=== PATIENT | female | born 1960 | race Two or more races ===

== ENCOUNTER 2019-05-05 04:50 | Emergency (ER) | payer OTHER ==
[~2019-05-05] VITALS: Ht 157.5 cm; Wt 99.3 kg
[~2019-05-05 04:50] MED LIST: AMLODIPINE BESY10 MG; ASA81 MG; GLIMEPIRIDE4 MG; METFORMIN HCL500 M1; NABUMETONE750 MG PO; ORPH100T PO; OSEL75CA PO; PROVENTIL3 ML/2.5 M IH; SYNTHROID50 MCG; VASOTEC20 M1; ZANTAC150 MG PO; ZOCOR20 MG; ZYNCOF 20-400120 ML PO; [UNRECOGNIZED DRUG - OTHER]
[2019-05-05] MEDS ORDERED: PRINIVIL20 MG (05:10)
[2019-05-05] MEDS ORDERED: METFORMIN HCL1000 MG (05:10)
[2019-05-05] MEDS ORDERED: ASPIR 8181 MG (05:11)
[2019-05-05] MEDS ORDERED: GLUCOTROL10 MG (05:11)
[2019-05-05] MEDS ORDERED: NORVASC10 MG (05:11)
[2019-05-05] MEDS ORDERED: LANTUS SOL100 UNIT/1 (05:12)
[2019-05-05] MEDS ORDERED: TRADJENTA5 MG (05:12)
[2019-05-05] MEDS ORDERED: GABAPENTIN400 MG PO (07:03)
== END 2019-05-05 07:30 | disposition home or self-care (01) ==
LOC: ER 04:50
DX: M79.662 Pain in left lower leg (principal)

== ENCOUNTER 2021-05-19 19:10 | Inpatient (IN) | payer OTHER ==
[~2021-05-19] VITALS: Ht 162.6 cm; Wt 102.1 kg
[~2021-05-19 19:10] MED LIST changes: +ASPIR 8181 MG; +GABAPENTIN400 MG PO; +GLUCOTROL10 MG; +LANTUS SOL100 UNIT/1; +METFORMIN HCL1000 MG; +NORVASC10 MG; +PRINIVIL20 MG; +TRADJENTA5 MG
[2021-05-19] MEDS ORDERED: ATORVASTATIN CA20 MG PO (19:27)
[2021-05-19] MEDS ORDERED: VITAMIN D3125 MC2 PO (19:27)
[2021-05-19] MEDS ORDERED: CALTRATE 600+D1 EACH PO (19:28)
[2021-05-19] MEDS ORDERED: FEOSOL325 MG PO (19:28)
[2021-05-26] MEDS ORDERED: INTEGRA PLUS C1 EACH PO (19:35)
[2021-05-26] MEDS ORDERED: KALEXATE15 GM PO (19:35)
[2021-05-26] MEDS ORDERED: FAMOTIDINE20 MG PO (19:35)
[2021-05-26] MEDS ORDERED: Lantus 1000 UNITS/10 SUBCUTANEO (19:35)
[2021-05-26] MEDS ORDERED: LASIX20 MG PO (19:35)
[2021-05-26] MEDS ORDERED: AMLODIPINE BESY10 MG PO (19:35)
[2021-05-26] MEDS ORDERED: LIPITOR20 MG PO (19:35)
== END 2021-05-26 21:00 | disposition home or self-care (01) | DRG 683 ==
LOC: ER 19:10 → MEDI 23:26
PROVIDERS: ADMIT Internal Medicine; ATTEND Internal Medicine
PROC: B24BZZZ Ultrasonography of Heart with Aorta (ICD-10-PCS; principal; 2021-05-20)
DX: I12.9 Hypertensive chronic kidney disease with stage 1 through stage 4 chronic kidney disease, or unspecified chronic kidney disease (principal); N17.8 Other acute kidney failure; N18.30 Chronic kidney disease, stage 3 unspecified; D63.8 Anemia in other chronic diseases classified elsewhere; E86.1 Hypovolemia; E87.79 Other fluid overload; E11.22 Type 2 diabetes mellitus with diabetic chronic kidney disease; E11.40 Type 2 diabetes mellitus with diabetic neuropathy, unspecified; E11.65 Type 2 diabetes mellitus with hyperglycemia; Z79.4 Long term (current) use of insulin; E66.8 Other obesity; E03.8 Other specified hypothyroidism; Z20.822 Contact with and (suspected) exposure to COVID-19

== ENCOUNTER 2021-07-07 10:16 | Emergency (ER) | payer OTHER ==
[~2021-07-07] VITALS: Ht 162.6 cm; Wt 103.0 kg
[~2021-07-07 10:16] MED LIST changes: +AMLODIPINE BESY10 MG PO; +ATORVASTATIN CA20 MG PO; +CALTRATE 600+D1 EACH PO; +FAMOTIDINE20 MG PO; +FEOSOL325 MG PO; +INTEGRA PLUS C1 EACH PO; +KALEXATE15 GM PO; +LASIX20 MG PO; +LIPITOR20 MG PO; +Lantus 1000 UNITS/10 SUBCUTANEO; +VITAMIN D3125 MC2 PO
== END 2021-07-07 13:07 | disposition home or self-care (01) ==
LOC: ER 10:16
DX: S90.31XA Contusion of right foot, initial encounter (principal); W19.XXXA Unspecified fall, initial encounter; Y92.9 Unspecified place or not applicable; Z91.018 Allergy to other foods; E11.9 Type 2 diabetes mellitus without complications; Z79.4 Long term (current) use of insulin; I10 Essential (primary) hypertension

== ENCOUNTER 2022-04-17 07:50 | Emergency (ER) | payer OTHER ==
[~2022-04-17] VITALS: Ht 157.5 cm; Wt 92.5 kg
== END 2022-04-17 12:36 | disposition home or self-care (01) ==
LOC: ER 07:50
DX: N18.9 Chronic kidney disease, unspecified (principal); R06.02 Shortness of breath; Z20.822 Contact with and (suspected) exposure to COVID-19; Z91.018 Allergy to other foods; I10 Essential (primary) hypertension; E03.9 Hypothyroidism, unspecified

== ENCOUNTER 2022-09-26 07:58 | Emergency (ER) | payer OTHER ==
[~2022-09-26] VITALS: Ht 157.5 cm; Wt 68.0 kg
== END 2022-09-26 11:36 | disposition home or self-care (01) ==
LOC: ER 07:58
DX: R05.9 Cough, unspecified (principal); I10 Essential (primary) hypertension; E11.9 Type 2 diabetes mellitus without complications; Z91.013 Allergy to seafood; Z91.018 Allergy to other foods

== ENCOUNTER 2023-02-02 13:05 | Emergency (ER) | payer OTHER ==
[~2023-02-02] VITALS: Ht 160 cm; Wt 88.5 kg
[~2023-02-02 13:05] MED LIST changes: +FERROUS SULFAT325 M1 PO; +FUROSEMIDE40 MG PO; +HYDRALAZINE HCL25 MG PO; +ISOSORBIDE MONO30 MG PO; +LEVOTHYROXINE50 MCG PO; +PAIN RELIEVER500 M2 PO; +RETACRIT10000 UNIT SUBCUTANEO
[2023-02-02 15:35] LABS: HEMATOCRIT 33.3 % (36.0-45.00); HEMOGLOBIN 11.2 g/dL (12.0-15.00); MEAN CELL VOLUME 93.9 fL (80.00-100.00); MEAN CORPUSCULAR HEMOGLOBIN 31.7 pg (27.00-32.0); MEAN CORPUSCULAR HGB CONC 33.7 g/dl (32.0-36.0); PLATELET COUNT 170 K/uL (150-450); RED BLOOD COUNT 3.55 M/uL (4.00-6.00); RED CELL DISTRIBUTION WIDTH 15.2 % (11.5-14.5)
[2023-02-02] MEDS ORDERED: TUSNEL DIABETI118 ML PO (15:49)
== END 2023-02-02 16:02 | disposition home or self-care (01) ==
LOC: ER 13:05
PROVIDERS: General Practice
DX: R05.9 Cough, unspecified (principal); Z20.822 Contact with and (suspected) exposure to COVID-19; I10 Essential (primary) hypertension; E11.9 Type 2 diabetes mellitus without complications; Z79.4 Long term (current) use of insulin; Z91.013 Allergy to seafood; Z91.018 Allergy to other foods

== ENCOUNTER 2023-03-02 21:59 | Emergency (ER) | payer OTHER ==
[~2023-03-02] VITALS: Ht 157.5 cm; Wt 81.6 kg
[~2023-03-02 21:59] MED LIST changes: +TUSNEL DIABETI118 ML PO
== END 2023-03-03 02:13 | disposition home or self-care (01) ==
LOC: ER 21:59
DX: M54.51 Vertebrogenic low back pain (principal); E11.9 Type 2 diabetes mellitus without complications; Z79.4 Long term (current) use of insulin; I10 Essential (primary) hypertension; Z91.018 Allergy to other foods; N28.9 Disorder of kidney and ureter, unspecified; Z99.2 Dependence on renal dialysis
CPT/HCPCS: 96372; 99283; J1885

== ENCOUNTER 2023-08-10 08:24 | Emergency (ER) | payer OTHER ==
[~2023-08-10] VITALS: Ht 157.5 cm; Wt 83.9 kg
[2023-08-10] MEDS ORDERED: FUROSEMIDE40 MG/4 ML PO (08:51)
[2023-08-10] MEDS ORDERED: LEVOXYL25 MCG PO (08:52)
[2023-08-10] MEDS ORDERED: GABAPENTIN100 M2 PO (08:52)
[2023-08-10] MEDS ORDERED: FAMOTIDINE/PF 20 MG in 0.9 % SODIUM CHLORIDE 8 ML IV PUSH STA (09:20)
[2023-08-10] MEDS ORDERED: BUTALB/ACETAMINOPHEN/CAFFEINE 1 TAB TABLET PO ONE (09:30)
[2023-08-10 09:55] LABS: HEMATOCRIT 34.9 % (36.0-45.00); HEMOGLOBIN 11.8 g/dL (12.0-15.00); MEAN CELL VOLUME 97.5 fL (80.00-100.00); MEAN CORPUSCULAR HEMOGLOBIN 33.1 pg (27.00-32.0); MEAN CORPUSCULAR HGB CONC 33.9 g/dl (32.0-36.0); PLATELET COUNT 196 K/uL (150-450); RED BLOOD COUNT 3.58 M/uL (4.00-6.00); RED CELL DISTRIBUTION WIDTH 13.3 % (11.5-14.5)
[2023-08-10 12:44] LABS: ALBUMIN 3.7 gm/dL (3.4-5.0); BILIRUBIN TOTAL 0.37 mg/dL (0.3-1.2); CALCIUM 9.2 mg/dL (8.5-10.1); GLOBULINA 4.3 G/DL (2.4-3.5); POTASSIUM 4.79 mEq/L (3.5-5.1)
[2023-08-10 12:49] LABS: GFR 7.79
[2023-08-10 12:50] LABS: CREATININE SERUM 5.54 mg/dL (0.55-1.02)
== END 2023-08-10 14:22 | disposition home or self-care (01) ==
LOC: ER 08:24
PROVIDERS: General Practice
DX: R53.81 Other malaise (principal); R10.13 Epigastric pain; Z20.822 Contact with and (suspected) exposure to COVID-19; I10 Essential (primary) hypertension; E11.9 Type 2 diabetes mellitus without complications; Z79.4 Long term (current) use of insulin; Z91.018 Allergy to other foods
CPT/HCPCS: 36415; 96365; 99282; J3490

== ENCOUNTER 2023-11-26 23:26 | Emergency (ER) | payer OTHER ==
[~2023-11-26] VITALS: Ht 157.5 cm; Wt 83.0 kg
[~2023-11-26 23:26] MED LIST changes: +FUROSEMIDE40 MG/4 ML PO; +GABAPENTIN100 M2 PO; +LEVOXYL25 MCG PO
[2023-11-26] MEDS ORDERED: RENVELA0.8 GM PO (23:34)
[2023-11-26] MEDS ORDERED: RENVELA2.4 GM PO (23:35)
[2023-11-26] MEDS ORDERED: LEVOTHYROXINE50 MC1 PO (23:36)
[2023-11-26] MEDS ORDERED: ISOSORBIDE DINI30 MG PO (23:36)
[2023-11-26] MEDS ORDERED: TRADJENTA5 MG PO (23:36)
[2023-11-26] MEDS ORDERED: LIPITOR20 MG PO (23:36)
[2023-11-26] MEDS ORDERED: LASIX40 MG PO (23:36)
[2023-11-26] MEDS ORDERED: COZAAR50 MG PO (23:37)
[2023-11-26] MEDS ORDERED: HYDROCHLOROTHIA50 MG PO (23:37)
[2023-11-27] MEDS ORDERED: HYDROCODONE/CHLORPHEN P-STIREX 5 ML ML PO STA (03:44)
[2023-11-27 04:04] LABS: HEMATOCRIT 35.3 % (36.0-45.00); HEMOGLOBIN 11.9 g/dL (12.0-15.00); MEAN CELL VOLUME 98.9 fL (80.00-100.00); MEAN CORPUSCULAR HEMOGLOBIN 33.2 pg (27.00-32.0); MEAN CORPUSCULAR HGB CONC 33.6 g/dl (32.0-36.0); PLATELET COUNT 202 K/uL (150-450); RED BLOOD COUNT 3.57 M/uL (4.00-6.00); RED CELL DISTRIBUTION WIDTH 13.7 % (11.5-14.5)
[2023-11-27] MEDS ORDERED: CEFTRIAXONE SODIUM 1,000 MG VIAL IM STA (05:03)
[2023-11-27] MEDS ORDERED: CEFTRIAXONE SODIUM 1,000 MG VIAL ONE (05:10)
== END 2023-11-27 05:21 | disposition home or self-care (01) ==
LOC: ER 23:27
DX: R53.81 Other malaise (principal); J03.90 Acute tonsillitis, unspecified; Z20.822 Contact with and (suspected) exposure to COVID-19; I10 Essential (primary) hypertension; Z91.013 Allergy to seafood
CPT/HCPCS: 36415; 96372; 99282; J0696

== ENCOUNTER 2024-07-13 21:01 | Emergency (ER) | payer OTHER ==
[~2024-07-13] VITALS: Ht 165.1 cm; Wt 78.9 kg
[~2024-07-13 21:01] MED LIST changes: +COZAAR50 MG PO; +HYDROCHLOROTHIA50 MG PO; +ISOSORBIDE DINI30 MG PO; +LASIX40 MG PO; +LEVOTHYROXINE50 MC1 PO; +RENVELA0.8 GM PO; +RENVELA2.4 GM PO; +TRADJENTA5 MG PO
[2024-07-13] MEDS ORDERED: GUAIFENESIN 200 MG/10 ML BLIST.PACK PO STA (21:43)
== END 2024-07-13 22:43 | disposition home or self-care (01) ==
LOC: ER 21:03
DX: B34.9 Viral infection, unspecified (principal); R05.9 Cough, unspecified; Z20.822 Contact with and (suspected) exposure to COVID-19; Z91.013 Allergy to seafood

== ENCOUNTER 2024-12-10 12:32 | Emergency (ER) | payer OTHER ==
[~2024-12-10] VITALS: Ht 162.6 cm; Wt 113.4 kg
[2024-12-10 13:58] LABS: BASO % 0.3 % (0.1-1.2); EOS # 0.12 (0.04-0.54); EOS % 2.0 % (0.7-7.0); LYMPH # 1.15 (1.18-3.74); LYMPH % 18.8 % (19.3-53.1); MEAN PLATELET VOLUME 10.50 fl (9.4-12.4); MONO # 0.54 (0.24-0.82); MONO % 8.8 % (4.7-12.5); NEUT # 4.29 (1.56-6.13); NEUT % 69.9 % (34.0-71.1); RED CELL DISTRIBUTION WIDTH 12.3 % (11.6-14.4)
[2024-12-10 14:25] LABS: ALT/SGPT 15.0 U/L (12-78); AST/SGOT 11.0 U/L (15-37); BILIRUBIN TOTAL 0.27 mg/dL (0.3-1.2); BUN CREA RATIO 12.0 (7.0-25.0); CREATININE SERUM 2.9 mg/dL (0.55-1.02); GFR 16.34; GLOBULINA 3.4 G/DL (2.4-3.5); GLUCOSE FASTING 130.0 mg/dL (65-100); LDH 223.0 U/L (84-246); OSMOLALITY SERUM 285.0 MOSM/KG (275-295); PHOSPHOKINASE CREATININE 67.0 U/L (26-192)
[2024-12-10] MEDS ORDERED: MAG HYDROX/ALUMINUM HYD/SIMETH 30 ML BLIST.PACK PO ONE ×2 (14:27→14:30)
[2024-12-10] MEDS ORDERED: FAMOTIDINE/PF 20 MG/2 ML VIAL ONE (14:27)
[2024-12-10] MEDS ORDERED: FAMOTIDINE/PF 20 MG/2 ML VIAL IV PUSH ONE (14:30)
== END 2024-12-10 17:58 | disposition home or self-care (01) ==
LOC: ER 12:32
PROVIDERS: Emergency Medicine
DX: N18.9 Chronic kidney disease, unspecified (principal); R10.13 Epigastric pain; R07.89 Other chest pain; R53.1 Weakness; I10 Essential (primary) hypertension; E11.9 Type 2 diabetes mellitus without complications; Z91.013 Allergy to seafood
CPT/HCPCS: 36415; 93005; 96365; 99282; J3490

== ENCOUNTER 2024-12-22 21:47 | Inpatient (IN) | payer OTHER ==
[~2024-12-22] VITALS: Ht 157.5 cm; Wt 59.0 kg
[2024-12-22] MEDS ORDERED: CLEOCIN HCL150 MG PO (22:05)
[2024-12-22] MEDS ORDERED: PIPERACILLIN/TAZOBACTAM SODIUM 2.25 GM VIAL IV SCH (22:31)
[2024-12-23 00:14] LABS: ERYTHROCYTE SEDIMENTATION RATE > 130 mm/hr (0-30)
[2024-12-23 00:15] LABS: BASO % 0.2 % (0.1-1.2); EOS # 0.13 (0.04-0.54); EOS % 1.4 % (0.7-7.0); LYMPH # 1.29 (1.18-3.74); LYMPH % 13.8 % (19.3-53.1); MEAN PLATELET VOLUME 10.70 fl (9.4-12.4); MONO # 0.63 (0.24-0.82); MONO % 6.7 % (4.7-12.5); NEUT # 7.27 (1.56-6.13); NEUT % 77.5 % (34.0-71.1); RED CELL DISTRIBUTION WIDTH 12.8 % (11.6-14.4)
[2024-12-23 00:54] LABS: BUN CREA RATIO 10.0 (7.0-25.0); GFR 9.76; GLOBULINA 4.6 G/DL (2.4-3.5); GLUCOSE FASTING 149.0 mg/dL (65-100); OSMOLALITY SERUM 280.0 MOSM/KG (275-295)
[2024-12-23 00:55] LABS: ALT/SGPT 15.0 U/L (12-78); AST/SGOT 17.0 U/L (15-37); BILIRUBIN TOTAL 0.41 mg/dL (0.3-1.2)
[2024-12-23 00:56] LABS: CREATININE SERUM 4.53 mg/dL (0.55-1.02)
[2024-12-23] MEDS ORDERED: SODIUM CHLORIDE 0.45 % 1,000 ML IV SCH (11:45)
[2024-12-23] MEDS ORDERED: LACTOBACILLUS ACIDOPHILUS 1 CAP CAP PO SCH (11:55)
[2024-12-23] MEDS ORDERED: ISOSORBIDE MONONITRATE 30 MG TABLET PO SCH (11:56)
[2024-12-23] MEDS ORDERED: LOSARTAN POTASSIUM 50 MG TABLET PO SCH (11:57)
[2024-12-23] MEDS ORDERED: ACETAMINOPHEN 500 MG GEL..CAP PO PRN (12:00)
[2024-12-23] MEDS ORDERED: DEXTROSE 50 % IN WATER 0.5 G/ML VIAL IV PRN (12:00)
[2024-12-23] MEDS ORDERED: INSULIN LISPRO 1,000 UNIT/10 ML UNITS SUBCUTANEO PRN (12:00)
[2024-12-23] MEDS ORDERED: PATIENTS OWN MEDICATION (MEDICAMENTO EN PISO) PO SCH (13:00)
[2024-12-23] MEDS ORDERED: PIPERACILLIN/TAZOBACTAM SODIUM 2.25 GM VIAL IV SCH ×2 (13:00→17:00)
[2024-12-23 13:48] VITALS: BP 170/76; O2SAT 97
[2024-12-23 15:03] LABS: COVID-19 AG NEGATIVE (NEGATIVE)
[2024-12-23] MEDS ORDERED: ATORVASTATIN CALCIUM 20 MG TABLET PO SCH (17:00)
[2024-12-23] MEDS ORDERED: HYDROCHLOROTHIAZIDE 25 MG TABLET PO SCH (17:00)
[2024-12-23 17:21] VITALS: BP 163/68; O2SAT 94
[2024-12-23] MEDS ORDERED: GABAPENTIN 100 MG CAPSULE PO SCH (21:00)
[2024-12-24 01:40] VITALS: BP 139/83; O2SAT 97
[2024-12-24] MEDS ORDERED: LEVOTHYROXINE SODIUM 50 MCG TABLET PO SCH (06:00)
[2024-12-24 07:08] LABS: INR 1.41
[2024-12-24 07:23] LABS: BASO % 0.2 % (0.1-1.2); EOS # 0.13 (0.04-0.54); EOS % 1.4 % (0.7-7.0); LYMPH # 1.01 (1.18-3.74); LYMPH % 11.1 % (19.3-53.1); MEAN PLATELET VOLUME 10.80 fl (9.4-12.4); MONO # 0.72 (0.24-0.82); MONO % 7.9 % (4.7-12.5); NEUT # 7.18 (1.56-6.13); NEUT % 78.9 % (34.0-71.1); RED CELL DISTRIBUTION WIDTH 12.5 % (11.6-14.4)
[2024-12-24 07:43] LABS: ERYTHROCYTE SEDIMENTATION RATE 89 mm/hr (0-30)
[2024-12-24 08:00] VITALS: BP 150/65; O2SAT 100
[2024-12-24 08:08] LABS: ALT/SGPT 17.0 U/L (12-78); AST/SGOT 19.0 U/L (15-37); BILIRUBIN TOTAL 0.37 mg/dL (0.3-1.2); CHOL HDL RATIO 1.6 (0-5.0); GLOBULINA 3.7 G/DL (2.4-3.5); GLUCOSE FASTING 101.0 mg/dL (65-100); HDL 78.0 mg/dl (40-60); LDL 38.0 mg/dl (0-130); OSMOLALITY SERUM 288.0 MOSM/KG (275-295); T4 FREE 1.27 NG/ML (0.76-1.46); TSH 1.94 uIU/mL (0.358-3.74); VLDL 9.0 (0-39)
[2024-12-24 08:28] LABS: BUN CREA RATIO 9.0 (7.0-25.0); GFR 7.13
[2024-12-24 08:29] LABS: CREATININE SERUM 5.95 mg/dL (0.55-1.02)
[2024-12-24] MEDS ORDERED: PIPERACILLIN/TAZOBACTAM SODIUM 2.25 GM VIAL IV SCH ×3 (13:15→21:00)
[2024-12-24 15:57] LABS: URINE APPEARANCE Clear; URINE BILIRRUBIN Negative (NEGATIVE); URINE BLOOD Negative; URINE COLOR Yellow; URINE GLUCOSE Negative (NEGATIVE); URINE KETONE Negative (NEGATIVE); URINE LEUKOCYTE Negative; URINE NITRATE Negative; URINE UROBILINOGEN 0.2 E.U./dl
[2024-12-24 16:00] VITALS: BP 134/67; O2SAT 97
[2024-12-24 16:01] LABS: URINE BACTERIA 22.8 uL (0.0-1933); URINE EPITHELIAL CELLS 12.6 uL (0.0-38.8); URINE RBC 3.3 uL (0.0-20.8); URINE WBC 2.4 uL (0.0-23.2)
[2024-12-24 16:17] LABS: URINE CAST 0.87 uL (0.0-1.40); URINE PROTEIN 100 (NEGATIVE)
[2024-12-24] MEDS ORDERED: CHLORHEXIDINE GLUCONATE 120 ML BOTTLE TOP SCH (17:00)
[2024-12-25 01:36] VITALS: BP 141/77; O2SAT 98
[2024-12-25 08:00] VITALS: BP 158/70; O2SAT 96
[2024-12-25 16:00] VITALS: BP 150/65; O2SAT 96
[2024-12-26 01:04] VITALS: BP 151/69; O2SAT 97
[2024-12-26 08:12] VITALS: BP 172/81; O2SAT 98
[2024-12-26] MEDS ORDERED: PATIENTS OWN MEDICATION (MEDICAMENTO EN PISO) PO SCH (09:00)
[2024-12-26 16:30] VITALS: BP 131/62; O2SAT 98
[2024-12-27 00:43] VITALS: BP 133/62; O2SAT 96
[2024-12-27 08:47] VITALS: BP 120/61; O2SAT 97
[2024-12-27] MEDS ORDERED: PHYTONADIONE 10 MG/ML AMPUL IM NR (15:15)
[2024-12-27] MEDS ORDERED: MUPIROCIN 15 GM OINT..GM TUBE NASAL SCH (17:00)
[2024-12-27 17:05] VITALS: BP 161/67; O2SAT 98
[2024-12-28 01:17] VITALS: BP 148/61; O2SAT 97
[2024-12-28 07:31] LABS: INR 1.21
[2024-12-28 08:00] VITALS: BP 160/76; O2SAT 98
[2024-12-28] MEDS ORDERED: levoFLOXacin IN DEXTROSE 5 % 5 MG/ML PIGGYBAG IV NR ×2 (09:00→14:00)
[2024-12-28] MEDS ORDERED: VANCOMYCIN HCL 1,000 MG VIAL IV NR ×2 (09:00→18:00)
[2024-12-28] MEDS ORDERED: VANCOMYCIN HCL 1,000 MG VIAL ONE ×2 (10:01→21:17)
[2024-12-28] MEDS ORDERED: POVIDONE-IODINE 118 ML BOTT TOP ONE ×2 (13:02→13:12)
[2024-12-28 18:38] VITALS: BP 156/76; O2SAT 97
[2024-12-29 02:23] VITALS: BP 155/79; O2SAT 100
[2024-12-29 08:00] VITALS: BP 137/73; O2SAT 98
[2024-12-29] MEDS ORDERED: KETOROLAC TROMETHAMINE 30 MG VIAL IV SCH (13:00)
[2024-12-29 16:00] VITALS: BP 158/68; O2SAT 96
[2024-12-30 02:07] VITALS: BP 156/70; O2SAT 97
[2024-12-30 06:28] LABS: BASO % 0.3 % (0.1-1.2); EOS # 0.17 (0.04-0.54); EOS % 1.8 % (0.7-7.0); LYMPH # 1.81 (1.18-3.74); LYMPH % 18.9 % (19.3-53.1); MEAN PLATELET VOLUME 10.40 fl (9.4-12.4); MONO # 0.93 (0.24-0.82); MONO % 9.7 % (4.7-12.5); NEUT # 6.57 (1.56-6.13); NEUT % 68.8 % (34.0-71.1); RED CELL DISTRIBUTION WIDTH 12.5 % (11.6-14.4)
[2024-12-30 06:53] LABS: ERYTHROCYTE SEDIMENTATION RATE > 130 mm/hr (0-30)
[2024-12-30 07:10] LABS: ALT/SGPT 29.0 U/L (12-78); AST/SGOT 14.0 U/L (15-37); BILIRUBIN TOTAL 0.24 mg/dL (0.3-1.2); GLOBULINA 4.0 G/DL (2.4-3.5); GLUCOSE FASTING 98.0 mg/dL (65-100); OSMOLALITY SERUM 293.0 MOSM/KG (275-295)
[2024-12-30 07:21] LABS: BUN CREA RATIO 12.0 (7.0-25.0); GFR 7.64
[2024-12-30 07:22] LABS: CREATININE SERUM 5.6 mg/dL (0.55-1.02)
[2024-12-30 08:00] VITALS: BP 172/84; O2SAT 96
[2024-12-30] MEDS ORDERED: levoFLOXacin IN DEXTROSE 5 % 500MG/100ML PIGGYBAG IV SCH (17:00)
[2024-12-30 17:55] VITALS: BP 173/76; O2SAT 98
[2024-12-30] MEDS ORDERED: VANCOMYCIN HCL 500 MG VIAL IV SCH (21:00)
[2024-12-31 01:26] VITALS: BP 138/69; O2SAT 97
[2024-12-31 08:00] VITALS: BP 163/74; O2SAT 95
[2024-12-31 16:15] VITALS: BP 168/75; O2SAT 95
[2025-01-01 01:16] VITALS: BP 134/68; O2SAT 98
[2025-01-01 05:32] LABS: BASO % 0.2 % (0.1-1.2); EOS # 0.17 (0.04-0.54); EOS % 1.9 % (0.7-7.0); LYMPH # 1.60 (1.18-3.74); LYMPH % 18.0 % (19.3-53.1); MEAN PLATELET VOLUME 10.50 fl (9.4-12.4); MONO # 0.74 (0.24-0.82); MONO % 8.3 % (4.7-12.5); NEUT # 6.30 (1.56-6.13); NEUT % 70.7 % (34.0-71.1); RED CELL DISTRIBUTION WIDTH 12.5 % (11.6-14.4)
[2025-01-01 05:46] LABS: ERYTHROCYTE SEDIMENTATION RATE 95 mm/hr (0-30)
[2025-01-01 08:00] VITALS: BP 137/82; O2SAT 95
[2025-01-01 16:16] VITALS: BP 119/69; O2SAT 97
[2025-01-02 01:00] VITALS: BP 133/67; O2SAT 95
[2025-01-02 08:00] VITALS: BP 170/74; O2SAT 97
[2025-01-02] MEDS ORDERED: HEPARIN SODIUM,PORCINE 5,000 UNITS/ML VIAL IV NR (11:45)
[2025-01-02 16:38] VITALS: BP 165/78; O2SAT 99
[2025-01-03 00:21] VITALS: BP 132/79; O2SAT 98
[2025-01-03 08:00] VITALS: BP 178/74; O2SAT 99
[2025-01-03 10:31] VITALS: BP 120/65; O2SAT 96
[2025-01-03 17:00] VITALS: BP 146/65; O2SAT 96
[2025-01-04 01:48] VITALS: BP 156/70; O2SAT 99
[2025-01-04 08:00] VITALS: BP 170/73; O2SAT 100
[2025-01-04] MEDS ORDERED: HEPARIN SODIUM,PORCINE 5,000 UNITS/ML VIAL IV ONE (13:15)
[2025-01-04 18:00] VITALS: BP 128/57; O2SAT 98
[2025-01-05 01:50] VITALS: BP 128/67; O2SAT 98
[2025-01-05 08:28] VITALS: BP 134/60; O2SAT 96
[2025-01-05 17:33] VITALS: BP 153/73; O2SAT 97
[2025-01-06 02:00] VITALS: BP 149/75; O2SAT 96
[2025-01-06 06:29] LABS: BASO % 0.4 % (0.1-1.2); EOS # 0.25 (0.04-0.54); EOS % 2.4 % (0.7-7.0); LYMPH # 2.02 (1.18-3.74); LYMPH % 19.6 % (19.3-53.1); MEAN PLATELET VOLUME 10.20 fl (9.4-12.4); MONO # 0.84 (0.24-0.82); MONO % 8.2 % (4.7-12.5); NEUT # 6.99 (1.56-6.13); NEUT % 68.0 % (34.0-71.1); RED CELL DISTRIBUTION WIDTH 12.8 % (11.6-14.4)
[2025-01-06 06:52] LABS: ERYTHROCYTE SEDIMENTATION RATE > 130 mm/hr (0-30)
[2025-01-06] MEDS ORDERED: HEPARIN SODIUM,PORCINE 5,000 UNITS/ML VIAL IV STA (08:04)
[2025-01-06 08:24] VITALS: BP 176/80; O2SAT 97
[2025-01-06] MEDS ORDERED: GABAPENTIN100 MG PO (17:15)
[2025-01-06] MEDS ORDERED: JUVEN PACKET1 EAC1 PO (17:15)
[2025-01-06 17:52] VITALS: BP 182/73; O2SAT 96
== END 2025-01-06 17:27 | DRG 255 ==
LOC: ER 21:47 → SURH 12-23 12:01 → SEC-K 12-23 12:01 → SURH 12-23 15:04
PROVIDERS: General Practice; Internal Medicine Infectious Disease; Specialist; ADMIT Internal Medicine; ATTEND Internal Medicine
PROC: B54CZZZ Ultrasonography of Left Lower Extremity Veins (ICD-10-PCS; 2024-12-23)
PROC: CP1Z1ZZ Planar Nuclear Medicine Imaging of Musculoskeletal System, All using Technetium 99m (Tc-99m) (ICD-10-PCS; 2024-12-23)
PROC: 5A1D70Z Performance of Urinary Filtration, Intermittent, Less than 6 Hours Per Day (ICD-10-PCS; 2024-12-24)
PROC: 5A1D70Z Performance of Urinary Filtration, Intermittent, Less than 6 Hours Per Day (ICD-10-PCS; 2024-12-26)
PROC: BQ3FZZZ Magnetic Resonance Imaging (MRI) of Left Lower Leg (ICD-10-PCS; 2024-12-27)
PROC: 5A1D70Z Performance of Urinary Filtration, Intermittent, Less than 6 Hours Per Day (ICD-10-PCS; 2024-12-28)
PROC: 0Y6U0Z0 Detachment at Left 3rd Toe, Complete, Open Approach (ICD-10-PCS; principal; 2024-12-28 16:45)
PROC: 5A1D70Z Performance of Urinary Filtration, Intermittent, Less than 6 Hours Per Day (ICD-10-PCS; 2024-12-30)
PROC: 5A1D70Z Performance of Urinary Filtration, Intermittent, Less than 6 Hours Per Day (ICD-10-PCS; 2025-01-02)
PROC: 5A1D70Z Performance of Urinary Filtration, Intermittent, Less than 6 Hours Per Day (ICD-10-PCS; 2025-01-04)
PROC: 0JBR0ZZ Excision of Left Foot Subcutaneous Tissue and Fascia, Open Approach (ICD-10-PCS; 2025-01-06)
DX: E11.52 Type 2 diabetes mellitus with diabetic peripheral angiopathy with gangrene (principal); N18.6 End stage renal disease; I96 Gangrene, not elsewhere classified; M86.172 Other acute osteomyelitis, left ankle and foot; I12.0 Hypertensive chronic kidney disease with stage 5 chronic kidney disease or end stage renal disease; N18.4 Chronic kidney disease, stage 4 (severe); L03.032 Cellulitis of left toe; E11.65 Type 2 diabetes mellitus with hyperglycemia; S90.41 Abrasion of toe; E11.42 Type 2 diabetes mellitus with diabetic polyneuropathy; E11.22 Type 2 diabetes mellitus with diabetic chronic kidney disease; D63.1 Anemia in chronic kidney disease; W22.8XXS Striking against or struck by other objects, sequela; E03.9 Hypothyroidism, unspecified; Z99.2 Dependence on renal dialysis; Z79.84 Long term (current) use of oral hypoglycemic drugs; B96.4 Proteus (mirabilis) (morganii) as the cause of diseases classified elsewhere

== ENCOUNTER 2025-02-09 14:46 | Inpatient (IN) | payer OTHER ==
[~2025-02-09] VITALS: Ht 162.6 cm; Wt 74.4 kg
[~2025-02-09 14:46] MED LIST changes: +CLEOCIN HCL150 MG PO; +GABAPENTIN100 MG PO; +JUVEN PACKET1 EAC1 PO
[2025-02-09] MEDS ORDERED: CALTRATE 600+D1 EAC1 PO (15:35)
[2025-02-09] MEDS ORDERED: ABATINEX680 MG PO (15:36)
[2025-02-09] MEDS ORDERED: HYDRALAZINE HCL50 MG PO (15:38)
[2025-02-09] MEDS ORDERED: PEPCID AC20 MG (15:38)
[2025-02-09 19:25] LABS: BASO % 0.4 % (0.1-1.2); EOS # 0.15 (0.04-0.54); EOS % 1.8 % (0.7-7.0); LYMPH # 2.13 (1.18-3.74); LYMPH % 25.4 % (19.3-53.1); MEAN PLATELET VOLUME 10.50 fl (9.4-12.4); MONO # 0.54 (0.24-0.82); MONO % 6.4 % (4.7-12.5); NEUT # 5.49 (1.56-6.13); NEUT % 65.4 % (34.0-71.1); RED CELL DISTRIBUTION WIDTH 13.4 % (11.6-14.4)
[2025-02-09 19:29] LABS: ERYTHROCYTE SEDIMENTATION RATE > 130 mm/hr (0-30)
[2025-02-09] MEDS ORDERED: CEFTRIAXONE SODIUM 1,000 MG VIAL IV ONE (19:30)
[2025-02-09] MEDS ORDERED: VANCOMYCIN HCL 1,000 MG VIAL IV ONE (19:30)
[2025-02-09] MEDS ORDERED: VANCOMYCIN HCL 1,000 MG VIAL ONE (19:32)
[2025-02-09] MEDS ORDERED: 0.9 % SODIUM CHLORIDE 1,000 ML IV ONE (19:45)
[2025-02-09 19:58] LABS: INR 1.17
[2025-02-09 20:04] LABS: ALT/SGPT 46.0 U/L (12-78); AST/SGOT 26.0 U/L (15-37); BILIRUBIN TOTAL 0.28 mg/dL (0.3-1.2); GLOBULINA 4.0 G/DL (2.4-3.5); GLUCOSE FASTING 115.0 mg/dL (65-100); OSMOLALITY SERUM 282.0 MOSM/KG (275-295)
[2025-02-09 20:37] LABS: BUN CREA RATIO 8.0 (7.0-25.0); GFR 11.57
[2025-02-09 20:38] LABS: CREATININE SERUM 3.91 mg/dL (0.55-1.02)
[2025-02-09] MEDS ORDERED: LOSARTAN POTASSIUM 50 MG TABLET PO SCH (20:39)
[2025-02-09] MEDS ORDERED: ATORVASTATIN CALCIUM 20 MG TABLET PO SCH (20:42)
[2025-02-09] MEDS ORDERED: DEXTROSE 50 % IN WATER 0.5 G/ML DISP.SYRIN IV PRN (20:45)
[2025-02-09] MEDS ORDERED: INSULIN LISPRO 1,000 UNIT/10 ML UNITS SUBCUTANEO PRN (20:45)
[2025-02-09] MEDS ORDERED: SODIUM CHLORIDE 0.45 % 1,000 ML IV SCH (20:45)
[2025-02-09 21:00] LABS: URINE APPEARANCE Clear; URINE BILIRRUBIN Negative (NEGATIVE); URINE BLOOD Negative; URINE COLOR Yellow; URINE GLUCOSE Negative (NEGATIVE); URINE KETONE Negative (NEGATIVE); URINE LEUKOCYTE Negative; URINE NITRATE Negative; URINE UROBILINOGEN 0.2 E.U./dl
[2025-02-09] MEDS ORDERED: PIPERACILLIN/TAZOBACTAM SODIUM 2.25 GM VIAL IV SCH (21:00)
[2025-02-09] MEDS ORDERED: MORPHINE SULFATE 2 MG/ML SYRINGE IV PRN (21:00)
[2025-02-09 21:04] LABS: URINE BACTERIA 136.7 uL (0.0-1933); URINE EPITHELIAL CELLS 17.8 uL (0.0-38.8); URINE RBC 6.8 uL (0.0-20.8); URINE WBC 1.8 uL (0.0-23.2)
[2025-02-09 21:15] LABS: URINE CAST 0.00 uL (0.0-1.40); URINE PROTEIN 100 (NEGATIVE)
[2025-02-09] MEDS ORDERED: hydrALAZINE HCL 20 MG VIAL IV PRN (22:00)
[2025-02-09 22:14] VITALS: BP 200/73; O2SAT 100
[2025-02-10] MEDS ORDERED: LEVOTHYROXINE SODIUM 50 MCG TABLET PO SCH (06:00)
[2025-02-10 06:20] VITALS: BP 163/77; O2SAT 98
[2025-02-10 07:03] LABS: ALT/SGPT 31.0 U/L (12-78); AST/SGOT 17.0 U/L (15-37); BILIRUBIN TOTAL 0.24 mg/dL (0.3-1.2); BUN CREA RATIO 8.0 (7.0-25.0); GFR 10.29; GLOBULINA 3.3 G/DL (2.4-3.5); GLUCOSE FASTING 90.0 mg/dL (65-100); OSMOLALITY SERUM 284.0 MOSM/KG (275-295)
[2025-02-10 07:27] LABS: CREATININE SERUM 4.33 mg/dL (0.55-1.02)
[2025-02-10 08:05] VITALS: BP 197/74; O2SAT 99
[2025-02-10] MEDS ORDERED: IRON FUM,PS/FOLIC/BCOMP,C NO.9 1 CAP CAPSULE PO SCH (09:00)
[2025-02-10] MEDS ORDERED: AMINO ACIDS 1 EACH TABLET PO SCH (09:00)
[2025-02-10] MEDS ORDERED: LACTOBACILLUS ACIDOPHILUS 1 CAP CAP PO SCH (09:00)
[2025-02-10] MEDS ORDERED: ISOSORBIDE MONONITRATE 30 MG TABLET PO SCH (09:00)
[2025-02-10] MEDS ORDERED: VANCOMYCIN HCL 5 MG/ML REDILUIDO IV STA (10:33)
[2025-02-10] MEDS ORDERED: GABAPENTIN 100 MG CAPSULE PO SCH (21:00)
[2025-02-10 22:47] VITALS: BP 110/50; O2SAT 100
[2025-02-11 01:33] VITALS: BP 133/64; O2SAT 98
[2025-02-11] MEDS ORDERED: CHLORHEXIDINE GLUCONATE 120 ML BOTTLE TOP SCH (09:00)
[2025-02-11 10:05] VITALS: BP 138/68; O2SAT 99
[2025-02-11 17:15] VITALS: BP 160/71; O2SAT 98
[2025-02-12 01:59] VITALS: BP 143/69; O2SAT 98
[2025-02-12] MEDS ORDERED: SODIUM HYPOCHLORITE 1OZ TOP SCH (09:00)
[2025-02-12 09:30] VITALS: BP 170/62; O2SAT 97
[2025-02-12 17:25] VITALS: BP 152/67; O2SAT 100
[2025-02-13 03:08] VITALS: BP 153/64; O2SAT 98
[2025-02-13 09:18] VITALS: BP 162/66; O2SAT 98
[2025-02-13] MEDS ORDERED: VANCOMYCIN HCL 500 MG VIAL IV SCH (17:00)
[2025-02-13 17:45] VITALS: BP 155/64
[2025-02-14 01:26] VITALS: BP 162/60; O2SAT 98
[2025-02-14 09:11] VITALS: BP 140/65; O2SAT 96
[2025-02-14] MEDS ORDERED: HEPARIN SODIUM,PORCINE 5,000 UNITS/ML VIAL ONE (12:05)
[2025-02-14 16:30] VITALS: BP 180/75; O2SAT 100
[2025-02-15 01:20] VITALS: BP 153/67; O2SAT 98
[2025-02-15 09:22] VITALS: BP 170/75; O2SAT 99
[2025-02-15 19:56] VITALS: BP 118/72; O2SAT 100
[2025-02-16 03:20] VITALS: BP 102/64; O2SAT 97
[2025-02-16 06:43] LABS: BASO % 0.1 % (0.1-1.2); EOS # 0.00 (0.04-0.54); EOS % 0.0 % (0.7-7.0); LYMPH # 1.12 (1.18-3.74); LYMPH % 10.1 % (19.3-53.1); MEAN PLATELET VOLUME 10.70 fl (9.4-12.4); MONO # 0.57 (0.24-0.82); MONO % 5.2 % (4.7-12.5); NEUT # 9.25 (1.56-6.13); NEUT % 83.8 % (34.0-71.1); RED CELL DISTRIBUTION WIDTH 14.2 % (11.6-14.4)
[2025-02-16 07:20] LABS: ALT/SGPT 67.0 U/L (12-78); AST/SGOT 35.0 U/L (15-37); BILIRUBIN TOTAL 0.22 mg/dL (0.3-1.2); BUN CREA RATIO 11.0 (7.0-25.0); GFR 8.55; GLOBULINA 3.1 G/DL (2.4-3.5); GLUCOSE FASTING 103.0 mg/dL (65-100); OSMOLALITY SERUM 295.0 MOSM/KG (275-295)
[2025-02-16 07:42] LABS: CREATININE SERUM 5.08 mg/dL (0.55-1.02)
[2025-02-16 09:02] VITALS: BP 100/60; O2SAT 100
[2025-02-16] MEDS ORDERED: ENOXAPARIN SODIUM 30 MG/0.3 ML SYRINGE SUBCUTANEO SCH (17:00)
[2025-02-16 17:20] LABS: BASO % 0.1 % (0.1-1.2); EOS # 0.02 (0.04-0.54); EOS % 0.2 % (0.7-7.0); LYMPH # 1.17 (1.18-3.74); LYMPH % 14.6 % (19.3-53.1); MEAN PLATELET VOLUME 10.60 fl (9.4-12.4); MONO # 0.57 (0.24-0.82); MONO % 7.1 % (4.7-12.5); NEUT # 6.19 (1.56-6.13); NEUT % 77.1 % (34.0-71.1); RED CELL DISTRIBUTION WIDTH 14.6 % (11.6-14.4)
[2025-02-16 20:36] VITALS: BP 110/57; O2SAT 98
[2025-02-17 03:07] VITALS: BP 114/52; O2SAT 94
[2025-02-17 06:30] LABS: BASO % 0.3 % (0.1-1.2); EOS # 0.15 (0.04-0.54); EOS % 1.5 % (0.7-7.0); LYMPH # 2.53 (1.18-3.74); LYMPH % 26.1 % (19.3-53.1); MEAN PLATELET VOLUME 11.00 fl (9.4-12.4); MONO # 0.81 (0.24-0.82); MONO % 8.4 % (4.7-12.5); NEUT # 6.10 (1.56-6.13); NEUT % 63.0 % (34.0-71.1); RED CELL DISTRIBUTION WIDTH 14.8 % (11.6-14.4)
[2025-02-17 06:43] LABS: INR 1.22
[2025-02-17 07:06] LABS: ALT/SGPT 54.0 U/L (12-78); AST/SGOT 24.0 U/L (15-37); BILIRUBIN TOTAL 0.24 mg/dL (0.3-1.2); BUN CREA RATIO 9.0 (7.0-25.0); GFR 10.57; GLOBULINA 2.9 G/DL (2.4-3.5); GLUCOSE FASTING 95.0 mg/dL (65-100); OSMOLALITY SERUM 283.0 MOSM/KG (275-295)
[2025-02-17 07:47] LABS: CREATININE SERUM 4.23 mg/dL (0.55-1.02)
[2025-02-17 08:33] VITALS: BP 112/59; O2SAT 97
[2025-02-17] MEDS ORDERED: ACETAMINOPHEN 500 MG GEL..CAP PO STA (09:35)
[2025-02-17] MEDS ORDERED: ACETAMINOPHEN 500 MG GEL..CAP PO PRN (09:45)
[2025-02-17 16:50] VITALS: BP 114/47
[2025-02-18 02:17] VITALS: BP 154/61; O2SAT 98
[2025-02-18 08:11] LABS: BASO % 0.2 % (0.1-1.2); EOS # 0.19 (0.04-0.54); EOS % 2.2 % (0.7-7.0); LYMPH # 2.24 (1.18-3.74); LYMPH % 25.7 % (19.3-53.1); MEAN PLATELET VOLUME 11.20 fl (9.4-12.4); MONO # 0.73 (0.24-0.82); MONO % 8.4 % (4.7-12.5); NEUT # 5.47 (1.56-6.13); NEUT % 62.9 % (34.0-71.1); RED CELL DISTRIBUTION WIDTH 16.3 % (11.6-14.4)
[2025-02-18 11:21] VITALS: BP 165/69; O2SAT 100
[2025-02-18 15:40] LABS: BASO % 0.3 % (0.1-1.2); EOS # 0.23 (0.04-0.54); EOS % 2.3 % (0.7-7.0); LYMPH # 1.20 (1.18-3.74); LYMPH % 12.1 % (19.3-53.1); MEAN PLATELET VOLUME 10.60 fl (9.4-12.4); MONO # 0.81 (0.24-0.82); MONO % 8.1 % (4.7-12.5); NEUT # 7.61 (1.56-6.13); NEUT % 76.6 % (34.0-71.1); RED CELL DISTRIBUTION WIDTH 17.8 % (11.6-14.4)
[2025-02-18 19:17] VITALS: BP 164/61
[2025-02-19 02:52] VITALS: BP 164/64; O2SAT 98
[2025-02-19 07:53] LABS: BASO % 0.2 % (0.1-1.2); EOS # 0.26 (0.04-0.54); EOS % 2.7 % (0.7-7.0); LYMPH # 1.22 (1.18-3.74); LYMPH % 12.7 % (19.3-53.1); MEAN PLATELET VOLUME 11.00 fl (9.4-12.4); MONO # 0.75 (0.24-0.82); MONO % 7.8 % (4.7-12.5); NEUT # 7.26 (1.56-6.13); NEUT % 76.0 % (34.0-71.1); RED CELL DISTRIBUTION WIDTH 18.3 % (11.6-14.4)
[2025-02-19 08:08] LABS: BUN CREA RATIO 11.0 (7.0-25.0); GFR 11.21; GLUCOSE FASTING 92.0 mg/dL (65-100); OSMOLALITY SERUM 281.0 MOSM/KG (275-295)
[2025-02-19 09:02] LABS: CREATININE SERUM 4.02 mg/dL (0.55-1.02)
[2025-02-19 11:13] VITALS: BP 160/55; O2SAT 97
[2025-02-19] MEDS ORDERED: POTASSIUM CHLORIDE IN WATER 100 ML IV NR (16:00)
[2025-02-19] MEDS ORDERED: POTASSIUM CHLORIDE 10 MEQ CAPSULE PO SCH (17:00)
[2025-02-20 01:32] VITALS: BP 159/70; O2SAT 98
[2025-02-20 06:50] LABS: BUN CREA RATIO 14.0 (7.0-25.0); GFR 9.13; GLUCOSE FASTING 87.0 mg/dL (65-100); OSMOLALITY SERUM 289.0 MOSM/KG (275-295)
[2025-02-20 07:53] LABS: CREATININE SERUM 4.8 mg/dL (0.55-1.02)
[2025-02-20 08:26] VITALS: BP 175/80; O2SAT 98
[2025-02-20 17:50] VITALS: BP 160/70; O2SAT 100
[2025-02-21 02:20] VITALS: BP 168/60; O2SAT 96
[2025-02-21] MEDS ORDERED: PANTOPRAZOLE SODIUM 40 MG TABLET.DR PO SCH (07:30)
[2025-02-21 08:40] VITALS: BP 150/62; O2SAT 98
[2025-02-21 12:12] LABS: BASO % 0.2 % (0.1-1.2); EOS # 0.30 (0.04-0.54); EOS % 3.0 % (0.7-7.0); LYMPH # 1.22 (1.18-3.74); LYMPH % 12.1 % (19.3-53.1); MEAN PLATELET VOLUME 11.30 fl (9.4-12.4); MONO # 0.72 (0.24-0.82); MONO % 7.1 % (4.7-12.5); NEUT # 7.76 (1.56-6.13); NEUT % 77.0 % (34.0-71.1); RED CELL DISTRIBUTION WIDTH 18.1 % (11.6-14.4)
[2025-02-21 13:16] LABS: ALT/SGPT 32.0 U/L (12-78); AST/SGOT 20.0 U/L (15-37); BILIRUBIN TOTAL 0.46 mg/dL (0.3-1.2); BUN CREA RATIO 15.0 (7.0-25.0); GFR 8.04; GLOBULINA 3.0 G/DL (2.4-3.5); GLUCOSE FASTING 119.0 mg/dL (65-100); OSMOLALITY SERUM 300.0 MOSM/KG (275-295)
[2025-02-21 13:31] LABS: CREATININE SERUM 5.36 mg/dL (0.55-1.02)
[2025-02-21] MEDS ORDERED: HEPARIN SODIUM,PORCINE 5,000 UNITS/ML VIAL ONE (16:27)
[2025-02-21 18:08] VITALS: BP 178/80; O2SAT 98
[2025-02-22 02:44] VITALS: BP 137/64; O2SAT 97
[2025-02-22 10:07] VITALS: BP 163/78; O2SAT 97
[2025-02-22 18:28] VITALS: BP 190/74; O2SAT 99
[2025-02-23 02:34] VITALS: BP 181/73; O2SAT 97
[2025-02-23 10:39] VITALS: BP 138/72; O2SAT 97
[2025-02-23 22:17] VITALS: BP 132/53; O2SAT 96
[2025-02-24 02:30] VITALS: BP 162/64; O2SAT 98
[2025-02-24 06:12] LABS: BASO % 0.3 % (0.1-1.2); EOS # 0.12 (0.04-0.54); EOS % 0.8 % (0.7-7.0); LYMPH # 1.06 (1.18-3.74); LYMPH % 7.0 % (19.3-53.1); MEAN PLATELET VOLUME 11.20 fl (9.4-12.4); MONO # 0.93 (0.24-0.82); MONO % 6.2 % (4.7-12.5); NEUT # 12.90 (1.56-6.13); NEUT % 85.2 % (34.0-71.1); RED CELL DISTRIBUTION WIDTH 17.8 % (11.6-14.4)
[2025-02-24 06:53] LABS: ALT/SGPT 22.0 U/L (12-78); AST/SGOT 19.0 U/L (15-37); BILIRUBIN TOTAL 0.57 mg/dL (0.3-1.2); BUN CREA RATIO 13.0 (7.0-25.0); GFR 9.94; GLOBULINA 3.3 G/DL (2.4-3.5); GLUCOSE FASTING 108.0 mg/dL (65-100); OSMOLALITY SERUM 290.0 MOSM/KG (275-295)
[2025-02-24 07:17] LABS: CREATININE SERUM 4.46 mg/dL (0.55-1.02)
[2025-02-24 10:23] VITALS: BP 146/64; O2SAT 99
[2025-02-24] MEDS ORDERED: MORPHINE SULFATE 4 MG/ML CARTRIDGE IV PRN (14:45)
[2025-02-24 18:20] VITALS: BP 127/63
[2025-02-25 02:44] VITALS: BP 137/66; O2SAT 98
[2025-02-25 09:29] VITALS: BP 158/75; O2SAT 98
[2025-02-25 19:34] VITALS: BP 153/64
[2025-02-26 01:24] VITALS: BP 142/55; O2SAT 96
[2025-02-26] MEDS ORDERED: CLOPIDOGREL BISULFATE 75 MG TABLET PO SCH (09:00)
[2025-02-26 10:17] VITALS: BP 141/62; O2SAT 98
[2025-02-26 19:11] VITALS: BP 176/63
[2025-02-27 01:18] VITALS: BP 160/68; O2SAT 98
[2025-02-27 09:43] VITALS: BP 166/68; O2SAT 97
[2025-02-27 17:51] LABS: BASO % 0.2 % (0.1-1.2); EOS # 0.29 (0.04-0.54); EOS % 2.2 % (0.7-7.0); LYMPH # 1.04 (1.18-3.74); LYMPH % 8.0 % (19.3-53.1); MEAN PLATELET VOLUME 11.30 fl (9.4-12.4); MONO # 0.83 (0.24-0.82); MONO % 6.4 % (4.7-12.5); NEUT # 10.67 (1.56-6.13); NEUT % 82.7 % (34.0-71.1); RED CELL DISTRIBUTION WIDTH 17.5 % (11.6-14.4)
[2025-02-27 17:56] VITALS: BP 172/68; O2SAT 98
[2025-02-28 03:22] VITALS: BP 194/70; O2SAT 99
[2025-02-28 08:28] VITALS: BP 170/66; O2SAT 98
[2025-02-28] MEDS ORDERED: 0.9 % SODIUM CHLORIDE 1,000 ML IV SCH (13:45)
[2025-02-28 14:46] LABS: COVID-19 AG NEGATIVE (NEGATIVE)
[2025-02-28 17:12] VITALS: BP 114/56; O2SAT 97
[2025-02-28] MEDS ORDERED: VANCOMYCIN HCL 125 MG CAPSULE PO SCH (18:00)
[2025-03-01 02:45] VITALS: BP 169/69; O2SAT 99
[2025-03-01 06:56] LABS: BASO % 0.2 % (0.1-1.2); EOS # 0.30 (0.04-0.54); EOS % 2.7 % (0.7-7.0); LYMPH # 1.00 (1.18-3.74); LYMPH % 9.1 % (19.3-53.1); MEAN PLATELET VOLUME 10.90 fl (9.4-12.4); MONO # 0.91 (0.24-0.82); MONO % 8.2 % (4.7-12.5); NEUT # 8.76 (1.56-6.13); NEUT % 79.3 % (34.0-71.1); RED CELL DISTRIBUTION WIDTH 18.4 % (11.6-14.4)
[2025-03-01 07:30] LABS: BUN CREA RATIO 11.0 (7.0-25.0); CREATININE SERUM 3.32 mg/dL (0.55-1.02); GFR 13.98; GLUCOSE FASTING 81.0 mg/dL (65-100); OSMOLALITY SERUM 287.0 MOSM/KG (275-295)
[2025-03-01 08:49] VITALS: BP 146/60; O2SAT 98
[2025-03-01] MEDS ORDERED: POTASSIUM CHLORIDE 20MEQ/100ML H2O PB IV NR (11:45)
[2025-03-01] MEDS ORDERED: POTASSIUM CHLORIDE IN WATER 100 ML IV NR (17:00)
[2025-03-01 17:51] VITALS: BP 130/54
[2025-03-02 03:16] VITALS: BP 164/67; O2SAT 98
[2025-03-02 10:18] VITALS: BP 159/63; O2SAT 98
[2025-03-02 16:25] LABS: BASO % 0.3 % (0.1-1.2); EOS # 0.48 (0.04-0.54); EOS % 3.6 % (0.7-7.0); LYMPH # 1.40 (1.18-3.74); LYMPH % 10.4 % (19.3-53.1); MEAN PLATELET VOLUME 10.70 fl (9.4-12.4); MONO # 1.11 (0.24-0.82); MONO % 8.3 % (4.7-12.5); NEUT # 10.22 (1.56-6.13); NEUT % 76.2 % (34.0-71.1); RED CELL DISTRIBUTION WIDTH 18.0 % (11.6-14.4)
[2025-03-02 16:54] LABS: BUN CREA RATIO 11.0 (7.0-25.0); CREATININE SERUM 3.81 mg/dL (0.55-1.02); GFR 11.92; GLUCOSE FASTING 105.0 mg/dL (65-100); OSMOLALITY SERUM 284.0 MOSM/KG (275-295)
[2025-03-02] MEDS ORDERED: EPOETIN ALFA-EPBX 10,000 UNIT/ML VIAL (Retacrit) SUBCUTANEO SCH (17:00)
[2025-03-02 18:43] VITALS: BP 163/62; O2SAT 99
[2025-03-03 03:38] VITALS: BP 180/65; O2SAT 98
[2025-03-03 09:25] VITALS: BP 163/70; O2SAT 98
[2025-03-03 18:33] VITALS: BP 160/66; O2SAT 100
[2025-03-04 04:02] VITALS: BP 155/66; O2SAT 98
[2025-03-04 18:20] VITALS: BP 154/70
[2025-03-05 02:29] VITALS: BP 167/68; O2SAT 98
[2025-03-05 10:25] VITALS: BP 151/65; O2SAT 98
[2025-03-05 18:30] VITALS: BP 160/68
[2025-03-06 02:35] VITALS: BP 177/69
[2025-03-06 08:40] VITALS: BP 197/85; O2SAT 99
[2025-03-06 17:20] LABS: BASO % 0.7 % (0.1-1.2); EOS # 0.38 (0.04-0.54); EOS % 2.9 % (0.7-7.0); LYMPH # 1.22 (1.18-3.74); LYMPH % 9.3 % (19.3-53.1); MEAN PLATELET VOLUME 10.40 fl (9.4-12.4); MONO # 0.91 (0.24-0.82); MONO % 6.9 % (4.7-12.5); NEUT # 8.96 (1.56-6.13); NEUT % 68.2 % (34.0-71.1); RED CELL DISTRIBUTION WIDTH 16.8 % (11.6-14.4)
[2025-03-06 18:15] VITALS: BP 158/66
[2025-03-06 18:45] LABS: BAND MAN 1.0 %; EOSINOPHIL MAN 7.0 %; LYMPHOCYTE MAN 10.0 %; MONOCYTE MAN 5.0 %; NEUTROPHILS MAN 74.0 %
[2025-03-07 02:34] VITALS: BP 160/65; O2SAT 100
[2025-03-07 09:21] VITALS: BP 168/80; O2SAT 100
[2025-03-07 18:02] VITALS: BP 151/65
[2025-03-08 02:49] VITALS: BP 143/63; O2SAT 99
[2025-03-08 08:52] VITALS: BP 160/63; O2SAT 97
[2025-03-08 14:44] LABS: BASO % 0.6 % (0.1-1.2); EOS # 0.26 (0.04-0.54); EOS % 2.4 % (0.7-7.0); LYMPH # 1.44 (1.18-3.74); LYMPH % 13.5 % (19.3-53.1); MEAN PLATELET VOLUME 10.00 fl (9.4-12.4); MONO # 0.78 (0.24-0.82); MONO % 7.3 % (4.7-12.5); NEUT # 6.67 (1.56-6.13); NEUT % 62.3 % (34.0-71.1); RED CELL DISTRIBUTION WIDTH 17.3 % (11.6-14.4)
[2025-03-08 15:24] LABS: BUN CREA RATIO 7.0 (7.0-25.0); CREATININE SERUM 3.1 mg/dL (0.55-1.02); GFR 15.13; GLUCOSE FASTING 157.0 mg/dL (65-100); OSMOLALITY SERUM 277.0 MOSM/KG (275-295)
[2025-03-08 15:54] LABS: BAND MAN 3.0 %; EOSINOPHIL MAN 1.0 %; LYMPHOCYTE MAN 21.0 %; METAMYELOCYTE 5.0 %; MONOCYTE MAN 5.0 %; MYELOCYTE 4.0 %; NEUTROPHILS MAN 60.0 %
[2025-03-08 18:03] VITALS: BP 159/59
[2025-03-09 01:55] VITALS: BP 171/68; O2SAT 98
[2025-03-09 08:38] VITALS: BP 160/73; O2SAT 98
[2025-03-09] MEDS ORDERED: POTASSIUM CHLORIDE IN WATER 40 MEQ/100 ML PIGGYBAG IV SCH (12:00)
[2025-03-09] MEDS ORDERED: POTASSIUM CHLORIDE 10 MEQ CAPSULE PO SCH (13:00)
[2025-03-09 15:42] LABS: COVID-19 AG NEGATIVE (NEGATIVE)
[2025-03-09 21:04] VITALS: BP 160/67; O2SAT 100
[2025-03-10 01:59] VITALS: BP 170/66; O2SAT 97
[2025-03-10 09:34] VITALS: BP 160/67; O2SAT 98
[2025-03-10 12:02] LABS: BUN CREA RATIO 7.0 (7.0-25.0); CREATININE SERUM 3.37 mg/dL (0.55-1.02); GFR 13.74; GLUCOSE FASTING 161.0 mg/dL (65-100); OSMOLALITY SERUM 278.0 MOSM/KG (275-295)
[2025-03-10] MEDS ORDERED: POTASSIUM CHLORIDE IN WATER 40 MEQ/100 ML PIGGYBAG IV ONE (12:58)
[2025-03-10 18:00] VITALS: BP 177/66
== END 2025-03-10 19:03 | disposition home or self-care (01) | DRG 270 ==
LOC: ER 14:47 → MEDJ 22:23 → SURG 22:23 → SEC-K 22:23 → SURG 22:31 → MEDI 02-10 15:24 → MEDJ 02-10 15:49
PROVIDERS: Internal Medicine; Internal Medicine Nephrology; Preventive Medicine Public Health & General Preventive Medicine; Student in an Organized Health Care Education/Training Program; ADMIT Internal Medicine; ATTEND Internal Medicine
PROC: BQ3FZZZ Magnetic Resonance Imaging (MRI) of Left Lower Leg (ICD-10-PCS; 2025-02-10)
PROC: 02HV33Z Insertion of Infusion Device into Superior Vena Cava, Percutaneous Approach (ICD-10-PCS; 2025-02-11)
PROC: 5A1D70Z Performance of Urinary Filtration, Intermittent, Less than 6 Hours Per Day (ICD-10-PCS; 2025-02-11)
PROC: 047N3Z1 Dilation of Left Popliteal Artery using Drug-Coated Balloon, Percutaneous Approach (ICD-10-PCS; 2025-02-15)
PROC: 047 Lower Arteries, Dilation (ICD-10-PCS; 2025-02-15)
PROC: 04CS3ZZ Extirpation of Matter from Left Posterior Tibial Artery, Percutaneous Approach (ICD-10-PCS; 2025-02-15)
PROC: 047S3ZZ Dilation of Left Posterior Tibial Artery, Percutaneous Approach (ICD-10-PCS; 2025-02-15)
PROC: 5A1D70Z Performance of Urinary Filtration, Intermittent, Less than 6 Hours Per Day (ICD-10-PCS; 2025-02-16)
PROC: 0Y6G0ZZ Detachment at Left Knee Region, Open Approach (ICD-10-PCS; principal; 2025-02-20)
PROC: 5A1D70Z Performance of Urinary Filtration, Intermittent, Less than 6 Hours Per Day (ICD-10-PCS; 2025-02-21)
PROC: 5A1D70Z Performance of Urinary Filtration, Intermittent, Less than 6 Hours Per Day (ICD-10-PCS; 2025-02-27)
PROC: 30233N1 Transfusion of Nonautologous Red Blood Cells into Peripheral Vein, Percutaneous Approach (ICD-10-PCS; 2025-02-27)
PROC: 5A1D70Z Performance of Urinary Filtration, Intermittent, Less than 6 Hours Per Day (ICD-10-PCS; 2025-03-03)
PROC: 5A1D70Z Performance of Urinary Filtration, Intermittent, Less than 6 Hours Per Day (ICD-10-PCS; 2025-03-10)
DX: E11.52 Type 2 diabetes mellitus with diabetic peripheral angiopathy with gangrene (principal); N18.6 End stage renal disease; M86.9 Osteomyelitis, unspecified; T81.49XA Infection following a procedure, other surgical site, initial encounter; I12.0 Hypertensive chronic kidney disease with stage 5 chronic kidney disease or end stage renal disease; I70.92 Chronic total occlusion of artery of the extremities; Z79.4 Long term (current) use of insulin; N18.9 Chronic kidney disease, unspecified; G62.9 Polyneuropathy, unspecified; E78.5 Hyperlipidemia, unspecified; Z99.2 Dependence on renal dialysis; E03.9 Hypothyroidism, unspecified; D64.9 Anemia, unspecified; K52.9 Noninfective gastroenteritis and colitis, unspecified; R06.02 Shortness of breath; I73.9 Peripheral vascular disease, unspecified; E66.9 Obesity, unspecified
CPT/HCPCS: 73725

== ENCOUNTER 2025-04-12 23:20 | Inpatient (IN) | payer OTHER ==
[~2025-04-12] VITALS: Ht 157.5 cm; Wt 88.5 kg
[~2025-04-12 23:20] MED LIST changes: +ABATINEX680 MG PO; +CALTRATE 600+D1 EAC1 PO; +HYDRALAZINE HCL50 MG PO; +PEPCID AC20 MG
[2025-04-12] MEDS ORDERED: CLOPIDOGREL300 MG (23:46)
[2025-04-12] MEDS ORDERED: CEVIMELINE HCL30 MG (23:46)
[2025-04-12] MEDS ORDERED: ZOFRAN8 MG (23:47)
[2025-04-13] MEDS ORDERED: FAMOTIDINE/PF 20 MG/2 ML VIAL IV PUSH STA (00:09)
[2025-04-13] MEDS ORDERED: ASPIRIN 325 MG TABLET.EC PO STA (00:09)
[2025-04-13] MEDS ORDERED: ONDANSETRON HCL 2 MG/ML VIAL IV STA (00:10)
[2025-04-13] MEDS ORDERED: NITROGLYCERIN 250 ML IV SCH (00:15)
[2025-04-13] MEDS ORDERED: ASPIRIN 325 MG TABLET.EC PO ONE (00:16)
[2025-04-13] MEDS ORDERED: NITROGLYCERIN IN 5 % DEXTROSE 50 MG/250 ML BOTTLE IV ONE (00:16)
[2025-04-13] MEDS ORDERED: ONDANSETRON HCL 2 MG/ML VIAL ONE (00:16)
[2025-04-13] MEDS ORDERED: FAMOTIDINE/PF 20 MG/2 ML VIAL ONE (00:16)
[2025-04-13 00:18] LABS: BASO % 0.3 % (0.1-1.2); EOS # 0.17 (0.04-0.54); EOS % 2.4 % (0.7-7.0); LYMPH # 1.87 (1.18-3.74); LYMPH % 26.7 % (19.3-53.1); MEAN PLATELET VOLUME 11.10 fl (9.4-12.4); MONO # 0.79 (0.24-0.82); MONO % 11.3 % (4.7-12.5); NEUT # 4.13 (1.56-6.13); NEUT % 58.9 % (34.0-71.1); RED CELL DISTRIBUTION WIDTH 15.6 % (11.6-14.4)
[2025-04-13 00:57] LABS: ALT/SGPT 22.0 U/L (12-78); AST/SGOT 19.0 U/L (15-37); BILIRUBIN TOTAL 0.4 mg/dL (0.3-1.2); BUN CREA RATIO 9.0 (7.0-25.0); CREATININE SERUM 2.35 mg/dL (0.55-1.02); GFR 20.82; GLOBULINA 3.7 G/DL (2.4-3.5); GLUCOSE FASTING 104.0 mg/dL (65-100); OSMOLALITY SERUM 279.0 MOSM/KG (275-295)
[2025-04-13 04:48] LABS: INR 1.15
[2025-04-13] MEDS ORDERED: MORPHINE SULFATE 4 MG/ML VIAL IV ONE (08:45)
[2025-04-13] MEDS ORDERED: ACETAMINOPHEN 500 MG GEL..CAP PO ONE (14:30)
[2025-04-13] MEDS ORDERED: ASPIRIN 81 MG TABLET.EC PO SCH (17:40)
[2025-04-13] MEDS ORDERED: ENOXAPARIN SODIUM 40 MG/0.4 ML SYRINGE SUBCUTANEO SCH (17:41)
[2025-04-13] MEDS ORDERED: LOSARTAN POTASSIUM 50 MG TABLET PO SCH (17:42)
[2025-04-13] MEDS ORDERED: ATORVASTATIN CALCIUM 40 MG TABLET PO SCH (17:44)
[2025-04-13] MEDS ORDERED: PATIENTS OWN MEDICATION (MEDICAMENTO EN PISO) PO SCH (17:44)
[2025-04-13] MEDS ORDERED: ACETAMINOPHEN 500 MG GEL..CAP PO PRN (17:45)
[2025-04-13] MEDS ORDERED: FAMOTIDINE/PF 20 MG/2 ML VIAL IV SCH (17:46)
[2025-04-13] MEDS ORDERED: NITROGLYCERIN IN 5 % DEXTROSE 250 ML IV SCH ×2 (17:47→19:30)
[2025-04-13] MEDS ORDERED: INSULIN LISPRO 1,000 UNIT/10 ML UNITS SUBCUTANEO PRN (18:00)
[2025-04-13] MEDS ORDERED: MORPHINE SULFATE 2 MG/ML SYRINGE IV PRN (18:00)
[2025-04-13] MEDS ORDERED: DEXTROSE 50 % IN WATER 0.5 G/ML DISP.SYRIN IV PRN (18:00)
[2025-04-13 20:18] VITALS: BP 147/78; O2SAT 99
[2025-04-13 20:21] VITALS: BP 147/78
[2025-04-13 20:48] VITALS: O2SAT 92
[2025-04-13] MEDS ORDERED: GABAPENTIN 100 MG CAPSULE PO SCH (21:00)
[2025-04-13 23:58] VITALS: O2SAT 100
[2025-04-14] VITALS (8 sets, daily range): BP systolic 139–164; BP diastolic 67–77; O2SAT 90–100
[2025-04-14 06:20] LABS: BASO % 0.5 % (0.1-1.2); EOS # 0.15 (0.04-0.54); EOS % 3.4 % (0.7-7.0); LYMPH # 1.67 (1.18-3.74); LYMPH % 37.7 % (19.3-53.1); MEAN PLATELET VOLUME 11.80 fl (9.4-12.4); MONO # 0.49 (0.24-0.82); MONO % 11.1 % (4.7-12.5); NEUT # 2.08 (1.56-6.13); NEUT % 46.8 % (34.0-71.1); RED CELL DISTRIBUTION WIDTH 15.9 % (11.6-14.4)
[2025-04-14 06:28] LABS: INR 1.18
[2025-04-14 06:51] LABS: ERYTHROCYTE SEDIMENTATION RATE 65 mm/hr (0-30)
[2025-04-14 07:23] LABS: ALT/SGPT 22.0 U/L (12-78); AST/SGOT 15.0 U/L (15-37); BILIRUBIN TOTAL 0.37 mg/dL (0.3-1.2); BUN CREA RATIO 10.0 (7.0-25.0); CHOL HDL RATIO 2.0 (0-5.0); CREATININE SERUM 3.82 mg/dL (0.55-1.02); GFR 11.89; GLOBULINA 3.3 G/DL (2.4-3.5); GLUCOSE FASTING 107.0 mg/dL (65-100); HDL 67.0 mg/dl (40-60); LDL 54.0 mg/dl (0-130); OSMOLALITY SERUM 286.0 MOSM/KG (275-295); T4 FREE 1.17 NG/ML (0.76-1.46); TSH 1.58 uIU/mL (0.358-3.74); VLDL 15.0 (0-39)
[2025-04-14] MEDS ORDERED: CLOPIDOGREL BISULFATE 75 MG TABLET PO SCH (09:00)
[2025-04-14] MEDS ORDERED: METOPROLOL SUCCINATE 25 MG TAB.SR.24H PO NR (12:30)
[2025-04-15] VITALS (7 sets, daily range): BP systolic 160–164; BP diastolic 69–74; O2SAT 90–97
[2025-04-15] MEDS ORDERED: METOPROLOL SUCCINATE 25 MG TAB.SR.24H PO SCH ×2 (09:00)
[2025-04-15] MEDS ORDERED: NITROGLYCERIN IN 5 % DEXTROSE 50 MG/250 ML BOTTLE IV ONE (09:42)
[2025-04-15] MEDS ORDERED: ONDANSETRON HCL 2 MG/ML VIAL IV PRN (20:30)
[2025-04-16] VITALS (9 sets, daily range): BP systolic 116–160; BP diastolic 63–78; O2SAT 90–98
[2025-04-16] MEDS ORDERED: MENTHOL/CETYLPYRD CL 1 LOZENGE MM SCH (12:00)
[2025-04-16 15:34] LABS: COVID-19 AG NEGATIVE (NEGATIVE)
[2025-04-16] MEDS ORDERED: hydrALAZINE HCL 50 MG,hydrALAZINE HCL 25 MG PO SCH (17:00)
[2025-04-17] VITALS (9 sets, daily range): BP systolic 153–166; BP diastolic 71–78; O2SAT 90–98
[2025-04-17 06:23] LABS: BASO % 0.3 % (0.1-1.2); EOS # 0.14 (0.04-0.54); EOS % 1.9 % (0.7-7.0); LYMPH # 1.34 (1.18-3.74); LYMPH % 18.2 % (19.3-53.1); MEAN PLATELET VOLUME 12.10 fl (9.4-12.4); MONO # 0.91 (0.24-0.82); NEUT # 4.91 (1.56-6.13); NEUT % 66.8 % (34.0-71.1); RED CELL DISTRIBUTION WIDTH 15.8 % (11.6-14.4)
[2025-04-17 06:45] LABS: MONO % 12.4 % (4.7-12.5)
[2025-04-17 07:05] LABS: ALT/SGPT 20.0 U/L (12-78); AST/SGOT 19.0 U/L (15-37); BILIRUBIN TOTAL 0.32 mg/dL (0.3-1.2); BUN CREA RATIO 13.0 (7.0-25.0); GFR 7.33; GLOBULINA 4.0 G/DL (2.4-3.5); GLUCOSE FASTING 118.0 mg/dL (65-100); OSMOLALITY SERUM 293.0 MOSM/KG (275-295)
[2025-04-17 08:02] LABS: CREATININE SERUM 5.81 mg/dL (0.55-1.02)
[2025-04-17] MEDS ORDERED: ISOSORBIDE MONONITRATE 30 MG TABLET PO NR (16:00)
[2025-04-18 00:05] VITALS: O2SAT 90
[2025-04-18 02:03] VITALS: BP 123/60; O2SAT 96
[2025-04-18 06:02] VITALS: O2SAT 95
[2025-04-18 08:33] VITALS: BP 131/62; O2SAT 96
[2025-04-18] MEDS ORDERED: ISOSORBIDE MONONITRATE 30 MG TABLET PO SCH (09:00)
[2025-04-18] MEDS ORDERED: FAMOTIDINE/PF 20 MG/2 ML VIAL IV SCH (09:00)
[2025-04-18 09:26] VITALS: O2SAT 96
[2025-04-18 13:24] VITALS: O2SAT 90
[2025-04-18] MEDS ORDERED: HYDRALAZINE HCL25 MG PO (15:01)
[2025-04-18] MEDS ORDERED: POM (MEDICAMENTO EN PO (15:01)
[2025-04-18] MEDS ORDERED: COZAAR50 MG PO (15:01)
[2025-04-18] MEDS ORDERED: HYDRALAZINE HCL50 MG PO (15:01)
[2025-04-18] MEDS ORDERED: LASIX40 MG PO (15:01)
[2025-04-18] MEDS ORDERED: ST. JOSEPH ASPI81 M2 PO (15:01)
[2025-04-18] MEDS ORDERED: CLOPIDOGREL BIS75 MG PO (15:01)
[2025-04-18] MEDS ORDERED: LIPITOR40 M1 PO (15:01)
[2025-04-18] MEDS ORDERED: TOPROL XL25 M1 PO (15:01)
[2025-04-18] MEDS ORDERED: GABAPENTIN100 MG PO (15:01)
[2025-04-18] MEDS ORDERED: Cepacol Sore Throat MM (15:01)
[2025-04-18] MEDS ORDERED: ISOSORBIDE MONO30 MG PO (15:01)
== END 2025-04-18 22:58 | disposition home or self-care (01) | DRG 304 ==
LOC: ER 23:20 → MEDI 04-13 17:59 → SEC-K 04-13 17:59 → MEDI 04-13 19:03
PROVIDERS: General Practice; Internal Medicine Endocrinology, Diabetes & Metabolism; Internal Medicine Geriatric Medicine; ADMIT Internal Medicine; ATTEND Internal Medicine
PROC: B24BYZZ Ultrasonography of Heart with Aorta using Other Contrast (ICD-10-PCS; 2025-04-13)
PROC: 4A12X4Z Monitoring of Cardiac Electrical Activity, External Approach (ICD-10-PCS; 2025-04-13)
PROC: 5A1D70Z Performance of Urinary Filtration, Intermittent, Less than 6 Hours Per Day (ICD-10-PCS; 2025-04-14)
PROC: 0WHG33Z Insertion of Infusion Device into Peritoneal Cavity, Percutaneous Approach (ICD-10-PCS; 2025-04-14)
PROC: 5A1D70Z Performance of Urinary Filtration, Intermittent, Less than 6 Hours Per Day (ICD-10-PCS; principal; 2025-04-17)
DX: I16.9 Hypertensive crisis, unspecified (principal); N18.6 End stage renal disease; I24.9 Acute ischemic heart disease, unspecified; Z79.4 Long term (current) use of insulin; E11.40 Type 2 diabetes mellitus with diabetic neuropathy, unspecified; I10 Essential (primary) hypertension; D64.9 Anemia, unspecified; N18.9 Chronic kidney disease, unspecified; E03.9 Hypothyroidism, unspecified